=== PATIENT | female | born 1970 | race Caucasian/White ===

== ENCOUNTER → 2019-05-20 13:38 | Outpatient (BNVA) | payer SELFPAY | PROVIDERS: Family Provider Nurse Practitioner; PCP Nurse Practitioner; Visit Provider Orthopaedic Surgery | DX: S82.831A Other fracture of upper and lower end of right fibula, initial encounter for closed fracture (principal); X58.XXXA Exposure to other specified factors, initial encounter | CPT/HCPCS: 73610 ==

== ENCOUNTER → 2019-07-18 09:16 | Outpatient (BNVA) | payer SELFPAY | PROVIDERS: Family Provider Nurse Practitioner; PCP Nurse Practitioner; Visit Provider Nurse Practitioner | DX: M79.7 Fibromyalgia (principal) | CPT/HCPCS: 82607; 84443 ==

== ENCOUNTER → 2019-08-23 12:32 | Outpatient (BNVA) | payer SELFPAY | PROVIDERS: Family Provider Nurse Practitioner; PCP Nurse Practitioner; Visit Provider Nurse Practitioner Family | DX: R39.9 Unspecified symptoms and signs involving the genitourinary system (principal); N30.01 Acute cystitis with hematuria | CPT/HCPCS: 81000 ==

== ENCOUNTER 2019-08-31 18:42 | Emergency (ER) | payer SELFPAY ==
[2019-08-31 19:07] VITALS: BP 126/90; PULSE 78; RESP 18; TEMP 36.7; O2SAT 99; BMI 35.4
[2019-08-31 19:15] VITALS: PULSE 76
--- NOTE | 2019-08-31 19:24 | XRR_ITS ---
PROCEDURE INFORMATION: Exam: XR Right Ankle Exam date and time: 08/31/2019 7:49 PM Age: 49 years old Clinical indication: Injury or trauma; Fall; Initial encounter; Swelling (edema); Ankle; Injury date: 08/31/19; Injury details: Right leg pain, fell off ladder approx. 8 ft. Swollen and tender on lat malleolus; Additional info: Injury, swollen and tender on lat malleolus TECHNIQUE: Imaging protocol: XR Right ankle. Views: Frontal, lateral, and oblique views. COMPARISON: CR XR ankle RT min 3V* [id number] 05/20/2019 1:43 PM FINDINGS: Bones/joints: Nondisplaced likely comminuted fracture of the mid and upper posterior calcaneal body. Moderate tibiotalar joint effusion. Healed distal fibular fracture. Soft tissues: Moderate lateral malleolar soft tissue swelling. XR/XR ankle RT min 3V* [id number] IMPRESSION: 1. Nondisplaced likely comminuted fracture of the mid and upper posterior calcaneal body. Cross-sectional imaging may be helpful. 2. Moderate tibiotalar joint effusion. 3. Healed distal fibular fracture. 4. Moderate lateral malleolar soft tissue swelling.
--- NOTE | 2019-08-31 19:24 | W.ED.EXTPRO ---
HPI - Extremity Problem General: Chief complaint: Extremity Injury, Lower Stated complaint: right leg pain/fell off ladder Time Seen by Provider: 08/31/19 19:11 History of Present Illness: HPI Narrative: Patient is a 49-year-old female who comes to the ED after having a fall and injuring her right ankle. Patient was standing on a ladder around 8 feet in the air and she was climbing down somehow fell and twisted her right ankle and landed down on her right side. Injury occurred just prior to arrival. Right ankle is now swollen and painful to walk on. She has been applying ice and has not had anything for pain. The pain on the right side is just under the armpit on the right lateral rib area. She denies having any pleuritic pain and only has pain on the right side with certain movements. Patient fractured same ankle about a year ago. Denies any head trauma or loss of consciousness. Associated symptoms: Deny chest pain, fever(s) or rash Review of Systems Const: Denies: fever, chills or fatigue Eyes: Denies: change in vision or eye discomfort ENMT: Denies: throat pain, painful swallowing, nasal discharge or nasal congestion Card: Denies: chest pain, palpitations, edema, swelling of feet/ankles, shortness of breath on exertion or shortness of breath when lying down Resp: Denies: shortness of breath, productive cough or non-productive cough GI: Denies: abdominal pain, nausea, vomiting, diarrhea, constipation or blood in stool : Denies: flank pain, painful urination or blood in urine Musc: Reports: back pain (right side pain-Just below armpit), extremity pain (right ankle) and extremity swelling (right ankle); Denies: neck pain Skin/Breast: Denies: rash or new lesion Neuro: Denies: headache, numbness in extremities or weakness in extremities PFS ED PFSH: Medical History Adult hypothyroidism Fibromyalgia History of TIA (transient ischemic attack) SVT (supraventricular tachycardia) Surgical History History of endometrial ablation 2008 History of tubal ligation Family History Mother Hypertension Brother Hypertension Family/Other Stroke Denies family history of Diabetes Cancer Social History Smoking and tobacco status: never smoked Second hand smoke exposure: No Smoking risk assessment/counseling performed?: No Alcohol intake: never Desire information about alcohol rehabilitation?: No Counseling given: No Desire information about substance/drug rehabilitation?: No Counseling given: No Adopted: No Caregiver/support person: No Lives independently: Yes Household members: spouse Housing: House Marital status: Number of children: 4 service: No Current occupational status: unemployed Pets and animals: Yes History of recent travel: No Current gender identity: Female Physical Exam Const: COMMON NORMALS: oriented x3 HENMT: COMMON NORMALS: normocephalic HEAD & SCALP: normocephalic MOUTH: oral and palatal mucosa normal THROAT: posterior oropharynx normal and uvula midline Eye: COMMON NORMALS: PERRL PUPIL: Yes PERRL Neck/C-Spine: COMMON NORMALS: supple GENERAL: Yes normal visual inspection Resp: COMMON NORMALS: normal respiratory effort, no retractions, no use of accessory muscles and clear to auscultation bilaterally AUSCULTATION: clear to auscultation bilaterally Cardio: COMMON NORMALS: regular rate, regular rhythm, S1 normal heart sound, S2 normal heart sound, no gallops, no clicks, no murmurs and peripheral pulses 2+ throughout RATE: regular rate RHYTHM: regular rhythm HEART SOUNDS: S1 normal and S2 normal PERIPHERAL PULSES: pulses 2+ throughout GI: COMMON NORMALS: normal to inspection, nondistended, normoactive bowel sounds, soft to palpation, non-tender and no masses PALPATION: Yes soft : COMMON NORMALS: Yes no CVA tenderness BLADDER/KIDNEY EXAM: Yes no CVA tenderness Back/Pelvis: COMMON NORMALS: no CVA tenderness THORACIC SPINE/UPPER BACK: Yes paraspinal muscle tenderness Thoracic paraspinal muscle tenderness: right (Right lateral side with localized muscle tenderness just below armpit.) Extremity: RIGHT LOWER EXTREMITY: Yes ankle joint Right ankle: Yes inspection (lateral malleolus swelling), Yes palpation (tender on lateral malleolus), Yes ROM (limited due to pain) and Yes neurovascular exam (intact) Neuro: COMMON NORMALS: oriented x3 and moves all extremities Skin: COMMON NORMALS: no rashes or lesions noted GENERAL SKIN EXAM: no rashes or lesions noted and dry skin Course Vital Signs: Vital signs: Vital Signs Temperature 98.1 F 08/31/19 19:07 Pulse Rate 72 08/31/19 21:20 Respiratory Rate 16 08/31/19 21:20 Blood Pressure 154/78 08/31/19 21:20 Pulse Oximetry 98 08/31/19 21:20 MDM - Extremity (Nontraumatic) MDM Narrative: Medical decision making narrative: Patient is a 49-year-old female who comes into the ED with right ankle injury. Right ankle was swollen and tender upon palpation. X-ray of right ankle was performed and showed no acute fractures. Prior old fracture seen and it is healing. Patient was given crutches and put in a short leg posterior splint to help stabilize ankle. I discussed with her to talk with her PCP about how long she should wear splint. She was told to limit weightbearing for the next 2 to 3 days and then to increase activity and weight-bear as tolerated. Patient has a follow-up appointment with PCP on Monday, September 01. She is also told to rest, ice and elevate right ankle. Take [id number] ibuprofen or Aleve for pain and inflammation. Patient understood and agreed with plan. Imaging Data^: Xray Ortho: Attestation: I personally reviewed and interpreted this imaging study as follows: My impression: Right ankle x-ray performed. No acute fracture seen. Prior old fracture seen. Pending final radiology report. Discharge Plan Discharge Patient Disposition: Home, Self-Care Clinical Impression: Ankle sprain and strain Condition: Stable Prescriptions: No Action cyanocobalamin (vitamin B-12) 1,000 mcg/mL solution 1,000 mcg IM ONCE Qty: 1 RF: 0 (DME) BD Luer-Estrellita Syringe 3 mL 25 gauge x 1 syringe See Rx Instructions .ROUTE .MEDSUPPLY Qty: 1 RF: 0 triamcinolone acetonide 0.1 % cream 1 applic TOPICAL BID RF: 0 hydrocodone-acetaminophen [[place]] 5-325 mg tablet 1 tab PO Q6H PRNRF: 0 metoprolol tartrate 25 mg tablet 25 mg PO .COMPLEX Qty: 60 RF: 2 levothyroxine [Synthroid] 75 mcg tablet 75 mcg PO QDAY Qty: 30 RF: 2 duloxetine [Cymbalta] 30 mg capsule,delayed release(DR/EC) 30 mg PO BID Qty: 60 RF: 2 Discharge Orders: Discharge Order (Routine); Ordered 08/31/19 Ordered By: Huang Pyle Referrals: Alexis Beltrán, SENIOR INVESTMENT MANAGER-C [Primary Care Provider] - Discharge Diet: Regular Discharge Activity: Increase activity as tolerated and Limit activity as instructed Patient Instructions: Ankle Sprain (ED) Activity Restrictions/Additional Instructions: Follow-up with your PCP on your schedule appointment for Monday, September 01. Limit weightbearing and use your crutches for the first 2 to 3 days. Then start increasing activity and weightbearing on right foot as tolerated. Talk with your PCP about when to remove splint and follow-up care for ankle sprain. Rest, ice and elevate right ankle. Take [id number] ibuprofen or Aleve to help with pain and inflammation. Discharge Date/Time: 08/31/19 21:22 Coding Level of Care Code ED Photographic Aide for Danilo Fwd Exam Comprehensive
[2019-08-31] MEDS: HYDROcodone-acetaminophen 7.5-325 mg Tablet 1 TAB PO (19:29)
[2019-08-31 19:30] VITALS: BP 137/105; PULSE 75; RESP 18; O2SAT 100
[2019-08-31 21:20] VITALS: BP 154/78; PULSE 72; RESP 16; O2SAT 98
== END 2019-08-31 21:22 | disposition home or self-care (01) ==
PROVIDERS: Emergency Provider Physician Assistant; Family Provider Nurse Practitioner; PCP Nurse Practitioner
DX: S93.401A Sprain of unspecified ligament of right ankle, initial encounter (principal); W11.XXXA Fall on and from ladder, initial encounter; E03.9 Hypothyroidism, unspecified; M79.7 Fibromyalgia; Z86.73 Personal history of transient ischemic attack (TIA), and cerebral infarction without residual deficits; Z82.49 Family history of ischemic heart disease and other diseases of the circulatory system
CPT/HCPCS: 12345; 73610; 99281

== ENCOUNTER → 2019-09-02 09:03 | Outpatient (BNVA) | payer SELFPAY | PROVIDERS: Family Provider Nurse Practitioner; PCP Nurse Practitioner; Visit Provider Nurse Practitioner | DX: N30.01 Acute cystitis with hematuria (principal) | CPT/HCPCS: 81000 ==

== ENCOUNTER → 2019-09-05 10:48 | Outpatient (BNVA) | payer SELFPAY | PROVIDERS: Family Provider Nurse Practitioner; PCP Nurse Practitioner; Visit Provider Podiatrist Foot & Ankle Surgery | DX: S92.001A Unspecified fracture of right calcaneus, initial encounter for closed fracture (principal); S92.002A Unspecified fracture of left calcaneus, initial encounter for closed fracture | CPT/HCPCS: 73650 ==

== ENCOUNTER → 2019-09-19 11:56 | Outpatient (BNVA) | payer SELFPAY | PROVIDERS: Family Provider Nurse Practitioner; PCP Nurse Practitioner; Visit Provider Podiatrist Foot & Ankle Surgery | DX: S92.011A Displaced fracture of body of right calcaneus, initial encounter for closed fracture (principal); X58.XXXA Exposure to other specified factors, initial encounter | CPT/HCPCS: 73650 ==

== ENCOUNTER → 2019-10-09 15:09 | Outpatient (BNVA) | payer SELFPAY | PROVIDERS: Family Provider Nurse Practitioner; PCP Nurse Practitioner; Visit Provider Podiatrist Foot & Ankle Surgery | DX: S92.001A Unspecified fracture of right calcaneus, initial encounter for closed fracture (principal); X58.XXXA Exposure to other specified factors, initial encounter | CPT/HCPCS: 73650 ==

== ENCOUNTER → 2019-11-06 10:07 | Outpatient (BNVA) | payer SELFPAY | PROVIDERS: Family Provider Nurse Practitioner; PCP Nurse Practitioner; Visit Provider Podiatrist Foot & Ankle Surgery | DX: S92.001A Unspecified fracture of right calcaneus, initial encounter for closed fracture (principal); X58.XXXA Exposure to other specified factors, initial encounter | CPT/HCPCS: 73650 ==

== ENCOUNTER → 2019-11-07 09:17 | Outpatient (BNVA) | payer SELFPAY | PROVIDERS: Family Provider Nurse Practitioner; PCP Nurse Practitioner; Visit Provider Nurse Practitioner | DX: E03.9 Hypothyroidism, unspecified (principal); M79.7 Fibromyalgia | CPT/HCPCS: 80053; 84443 ==

== ENCOUNTER → 2020-01-09 14:43 | Outpatient (BNVA) | payer SELFPAY | PROVIDERS: Family Provider Nurse Practitioner; PCP Nurse Practitioner; Visit Provider Nurse Practitioner | DX: R42 Dizziness and giddiness (principal); Z11.59 Encounter for screening for other viral diseases | CPT/HCPCS: 36416; 82962; 87635 ==

== ENCOUNTER → 2020-05-20 11:00 | Outpatient (BNVA) | payer SELFPAY | PROVIDERS: Family Provider Nurse Practitioner; PCP Nurse Practitioner; Visit Provider Nurse Practitioner Family | DX: R30.0 Dysuria (principal); R32 Unspecified urinary incontinence | CPT/HCPCS: 81000 ==

== ENCOUNTER 2020-06-02 10:09 | Outpatient (CLI) | payer SELFPAY ==
--- NOTE | 2020-06-02 10:15 | US_ITS ---
WS: [id number] RENAL ULTRASOUND HISTORY: R32 - Unspecified urinary incontinence COMPARISON: None available. TECHNIQUE: 2-D and color Doppler imaging of the kidney submitted. Right kidney: 10.7 cm x 5.0 cm x 4.5 cm. Normal echogenicity with no hydronephrosis or mass. Left kidney: 11.1 cm x 5.3 cm x 5.5 cm. Normal echogenicity with no hydronephrosis or mass. Aorta: Normal. Urinary Bladder: Normal distention. US/US renal BI* [id number] IMPRESSION: Normal renal ultrasound.
--- NOTE | 2020-06-02 11:00 | US_ITS ---
WS: [id number] TRANSABDOMINAL PELVIC AND TRANSVAGINAL PELVIC ULTRASOUND HISTORY: R32 - Unspecified urinary incontinence COMPARISON: 07/16/2009 Uterus: 5.7 cm x 3.8 cm x 1.9 cm. Normal size anteverted uterus. No fibroid or mass identified. Endometrium: 0.3 cm. Poorly visualized with the cardia but no abnormality identified. Right ovary: 1.9 cm x 1.0 cm x 2.0 cm. Atrophic. No solid mass. Normal vascularity. Left ovary: 1.5 cm x 0.8 cm x 1.7 cm. Atrophic. No solid mass. Normal vascularity. No free fluid. US/US pelvic with transvaginal IMPRESSION: Negative pelvic ultrasound. No mass or abnormality identified.
== END 2020-06-02 10:10 | disposition home or self-care (01) ==
LOC: RAD 10:13
PROVIDERS: PCP Nurse Practitioner; Visit Provider Nurse Practitioner Family
DX: R32 Unspecified urinary incontinence (principal)
CPT/HCPCS: 76770; 76830; 76856

== ENCOUNTER → 2020-12-07 08:46 | Outpatient (BNVA) | payer SELFPAY | PROVIDERS: PCP Nurse Practitioner; Visit Provider Nurse Practitioner | DX: E03.9 Hypothyroidism, unspecified (principal) | CPT/HCPCS: 80053; 84443 ==

== ENCOUNTER → 2021-05-21 09:36 | Outpatient (BNVA) | payer SELFPAY | PROVIDERS: PCP Nurse Practitioner; Visit Provider Nurse Practitioner Family | DX: R17 Unspecified jaundice (principal); R74.8 Abnormal levels of other serum enzymes | CPT/HCPCS: 80053; 85025; 86705; 86706; 86709; 86803; 87340 ==

== ENCOUNTER → 2021-07-27 08:48 | Outpatient (BNVA) | payer SELFPAY | PROVIDERS: PCP Nurse Practitioner; Visit Provider Dermatology | DX: Z01.89 Encounter for other specified special examinations (principal) ==

== ENCOUNTER → 2022-01-04 11:13 | Outpatient (BNVA) | payer MEDICAID, SELFPAY | PROVIDERS: PCP Nurse Practitioner; Visit Provider Nurse Practitioner | DX: E03.9 Hypothyroidism, unspecified (principal); E55.9 Vitamin D deficiency, unspecified; M79.7 Fibromyalgia; L30.8 Other specified dermatitis | CPT/HCPCS: 80053; 82306; 82607; 84439; 84443; 84481; 85025; 85651 ==

== ENCOUNTER → 2022-02-25 13:05 | Outpatient (BNVA) | payer MEDICAID, SELFPAY | PROVIDERS: PCP Nurse Practitioner; Visit Provider Nurse Practitioner Family | DX: M79.10 Myalgia, unspecified site (principal); M25.50 Pain in unspecified joint; R79.89 Other specified abnormal findings of blood chemistry; L30.8 Other specified dermatitis | CPT/HCPCS: 84550; 85651; 86038; 86140; 86200; 86431 ==

== ENCOUNTER 2022-03-30 16:00 | Outpatient (CLI) | payer MEDICAID, SELFPAY ==
[2022-03-30 17:21] LABS: Hepatitis A Antibody IgM Non-Reactive (Nonreactive); Hepatitis B Core AB, Total Non-Reactive (Nonreactive); Hepatitis B Surface AB 3.5 (11.5-1000); Hepatitis B Surface Antigen Non-Reactive (Nonreactive); Hepatitis C Virus Antibody Non-Reactive (Nonreactive)
[2022-03-30 19:24] LABS: HIV 1 & 2 Antibody Non-Reactive (Non-Reactiv); HIV 1 & 2 Antigen Non-Reactive (Non-Reactiv)
[2022-03-31 09:37] LABS: CENTROMERE B ANTIBODY <1.0 NEG AI (<1.0 NEG); JO-1 ANTIBODY <1.0 NEG AI (<1.0 NEG); RNP ANTIBODY <1.0 NEG AI (<1.0 NEG); SCL-70 ANTIBODY <1.0 NEG AI (<1.0 NEG); SJOGREN'S ANTIBODY (SS-A) <1.0 NEG AI (<1.0 NEG); SM ANTIBODY <1.0 NEG AI (<1.0 NEG); SS-B <1.0 NEG AI (<1.0 NEG)
[2022-03-31 13:08] LABS: COMPLEMENT COMPONENT C3C 165 mg/dL (83-193); COMPLEMENT COMPONENT C4C 26 mg/dL (15-57)
[2022-03-31 13:23] LABS: THYROID PEROXIDASE ANTIBODIES 381 IU/mL (<9)
[2022-04-01 14:24] LABS: Quantiferon Mitogen >10.00 IU/mL; Quantiferon Nil 0.02 IU/mL; Quantiferon Plus TB2 <0.00 IU/mL; Quantiferon TB Gold NEGATIVE (NEGATIVE)
[2022-04-01 15:58] LABS: COMPLEMENT, TOTAL (CH50) >60 U/mL (31-60)
[2022-04-02 15:48] LABS: DNA AB (DS) CRITHIDIA,IFA NEGATIVE (NEGATIVE)
[2022-04-04 11:07] LABS: ANA SCREEN, IFA POSITIVE (NEGATIVE)
== END 2022-03-30 16:01 | disposition home or self-care (01) ==
LOC: LAB 16:03
PROVIDERS: PCP Nurse Practitioner; Visit Provider Dermatology
DX: L40.9 Psoriasis, unspecified (principal); R76.8 Other specified abnormal immunological findings in serum; Z79.899 Other long term (current) drug therapy
CPT/HCPCS: 36415; 86160; 86162; 86235; 86255; 86376; 86480; 86705; 86706; 86709; 86803; 87340; 87806

== ENCOUNTER → 2022-05-04 14:01 | Outpatient (BNVA) | payer MEDICAID, SELFPAY | PROVIDERS: PCP Nurse Practitioner; Visit Provider Nurse Practitioner | DX: E03.9 Hypothyroidism, unspecified (principal); E66.9 Obesity, unspecified; I47.1 Supraventricular tachycardia | CPT/HCPCS: 80053; 81000; 84443; 85025 ==

== ENCOUNTER 2022-05-10 08:55 | Outpatient (CLI) | payer MEDICAID, SELFPAY ==
--- NOTE | 2022-05-10 09:30 | US_ITS ---
WS: [id number] ULTRASOUND ABDOMEN LIMITED CLINICAL INFORMATION: elevated liver enzymes FINDINGS: Liver Size: Mild hepatomegaly Craniocaudal length: 16.4 cm. Echogenicity: Increased echogenicity Surface nodularity: None. Mass (size and location): None. Bile ducts Intrahepatic ducts: Normal. Common bile duct diameter: 0.4 cm. Gallbladder Normal. Gallstones: None. Gallbladder sludge: None. Gallbladder wall thickening: None. Pericholecystic fluid: None. Sonographic Walter sign: Absent. Pancreas Normal as visualized. Right kidney: Normal. Hydronephrosis: None. Size: 10.3 cm x 5.7 cm x 4.3 cm. Abdominal aorta and IVC Visualized portions are normal. Ascites: None. US/US liver [id number] IMPRESSION: 1. Mild hepatomegaly with diffuse fatty infiltration. 2. Normal gallbladder. No cholelithiasis. 3. Normal common bile duct. 4. No hydronephrosis in RIGHT kidney.
== END 2022-05-10 08:56 | disposition home or self-care (01) ==
PROVIDERS: PCP Nurse Practitioner; Visit Provider Nurse Practitioner Family
DX: R74.8 Abnormal levels of other serum enzymes (principal); K76.0 Fatty (change of) liver, not elsewhere classified; R16.0 Hepatomegaly, not elsewhere classified
CPT/HCPCS: 76705

== ENCOUNTER → 2022-05-24 11:02 | Outpatient (BNVA) | payer MEDICAID, SELFPAY | PROVIDERS: PCP Nurse Practitioner; Referring Provider Nurse Practitioner Family; Visit Provider Internal Medicine Rheumatology | DX: Z79.899 Other long term (current) drug therapy (principal); M19.90 Unspecified osteoarthritis, unspecified site; Z11.59 Encounter for screening for other viral diseases; M45.6 Ankylosing spondylitis lumbar region | CPT/HCPCS: 36415; 73130; 73562; 73630; 82306; 86480; 86704; 86803; 86812; 87340 ==

== ENCOUNTER → 2022-08-23 11:38 | Outpatient (BNVA) | payer MEDICAID, SELFPAY | PROVIDERS: PCP Nurse Practitioner; Visit Provider Internal Medicine Rheumatology | DX: L40.50 Arthropathic psoriasis, unspecified (principal); Z79.899 Other long term (current) drug therapy | CPT/HCPCS: 36415; 80076; 82565; 85025; 86140 ==

== ENCOUNTER → 2022-11-22 09:58 | Outpatient (BNVA) | payer MEDICAID, SELFPAY | PROVIDERS: PCP Nurse Practitioner; Visit Provider Internal Medicine Rheumatology | DX: Z79.899 Other long term (current) drug therapy (principal); L40.50 Arthropathic psoriasis, unspecified | CPT/HCPCS: 36415; 80076; 82565; 85025; 86140 ==

== ENCOUNTER → 2022-12-19 13:28 | Outpatient (BNVA) | payer MEDICAID, SELFPAY | PROVIDERS: PCP Nurse Practitioner; Visit Provider Nurse Practitioner | DX: E03.9 Hypothyroidism, unspecified (principal) | CPT/HCPCS: 80048; 84443 ==

== ENCOUNTER 2023-01-19 06:49 | Outpatient (CLI) | payer MEDICAID, SELFPAY ==
--- NOTE | 2023-01-19 07:45 | US_ITS ---
WS: [id number] RIGHT UPPER QUADRANT ULTRASOUND HISTORY: epigastric pain COMPARISON: 05/10/2022 Liver: 16.9 cm in length. Liver remains top normal size. Very mild coarse echotexture throughout prob ably related to hepatocellular disease or hepatic steatosis. Surface of the liver is normal. No mass or bile duct dilatation. Portal Vein: Normal hepatopetal flow with monophasic waveform. Gallbladder: Normally distended gallbladder with no stones or wall thickening. CBD: 0.3 cm Pancreas: Normal size and echogenicity. Right kidney: 9.9 cm in length. Normal size and echogenicity. No hydronephrosis or mass. Aorta and IVC: Unremarkable abdominal aorta and IVC. No ascites. IMPRESSION: 1. Liver remains top normal size with mild coarse echotexture from hepatocellular disease. May be rel ated hepatic steatosis. 2. Normal gallbladder.
== END 2023-01-19 06:50 | disposition home or self-care (01) ==
LOC: RAD 06:50
PROVIDERS: PCP Nurse Practitioner; Visit Provider Surgery
DX: R10.13 Epigastric pain (principal); K76.9 Liver disease, unspecified
CPT/HCPCS: 76705

== ENCOUNTER 2023-02-22 07:59 | Day surgery (SDC) | payer MEDICAID, SELFPAY ==
[2023-02-22 08:10] VITALS: BP 125/83; PULSE 60; RESP 18; TEMP 36.4; O2SAT 100
[2023-02-22] MEDS: sodium chloride 0.9% 1,000 ML 30 ML IV (08:36)
--- NOTE | 2023-02-22 08:45 | ANES.PREANE2 ---
Pre-Anesthetic Assessment Height/Weight: Height 1.57 m Weight 83.007 kg Temp Pulse Resp BP Pulse Ox O2 Del Method 97.5 F L 60 18 125/83 100 Room Air 02/22/23 08:10 02/22/23 08:10 02/22/23 08:10 02/22/23 08:10 02/22/23 08:10 02/22/23 08:10 Preop Diagnosis: Abdominal Bloating, GERD, Screening Operation Date: 02/22/23 09:15 Proposed Procedures p 53290 egd 14020 colon R14.0,Z12.11,K21.9,R10.13(Not Applicable) - DO mango Thomas Colonoscopy(Not Applicable) - Ronnell Myers DO Familial anesthetic complications: none Last intake: Intake Last Liquid Date 02/21/23 Last Liquid Time 22:00 Last Solid Date 02/20/23 Last Solid Time 20:00 Social No alcohol and No tobacco Exam alert, oriented x 3, clear to auscultation bilaterally and regular rate & rhythm Airway Submandibular: within normal limits Cervical ROM: within normal limits Mallampati: Class II Dentition: false (upper plate) Pulmonary None reported CV/HEM Arrythmia (SVT- history) None reported Hepatic Non-alcoholic fatty liver disease, elevated enzymes. GI Gastroesophageal Reflux Disease abominal pain, bloating Metabolic Thyroid Disease [facility] Rheumatoid Arthritis Neuropsych Anxiety, Depression and Transient Ischemic Attack (x3 2005 stress induced per patient) Anesthetic Plan ASA status: 3 Anesthesia: MAC Medications/Allergies Home Medications Medication Instructions Recorded Confirmed Last Taken Type pen needle, diabetic 33 gauge x #100 ea 03/19/22 02/22/23 Unknown Rx calcipotriene 0.005 % topical cream 1 applic topical DAILY L40.0 #60 08/23/22 02/22/23 3 Weeks Ago Rx grams ~02/01/23 clobetasol 0.05 % scalp solution 1 applic topical DAILY #50 mL 08/23/22 02/22/23 3 Weeks Ago Rx ~02/01/23 clobetasol 0.05 % topical ointment 1 applic topical BID 2 weeks #45 08/23/22 02/22/23 02/20/23 Rx grams fluocinolone 0.01 % scalp oil and 1 ea topical .2-3 times weekly. 08/23/22 02/22/23 3 Weeks Ago Rx shower cap ([place]-Smoothe/FS Scalp #118.28 mL ~02/01/23 Oil) hydrocortisone 2.5 % topical 1 applic topical BID L40.0 2 weeks 08/23/22 02/22/23 3 Weeks Ago Rx ointment #28.35 grams ~02/01/23 ketoconazole 2 % shampoo 1 applic topical ONCE #120 mL 08/23/22 02/22/23 3 Weeks Ago Rx ~02/01/23 triamcinolone acetonide 0.1 % 1 applic topical BID #80 grams 08/23/22 02/22/23 3 Weeks Ago Rx topical ointment ~02/01/23 metoprolol tartrate 25 mg tablet 25 mg PO Q12H #60 tabs 12/19/22 02/22/23 02/22/23 06:30 Rx levothyroxine 75 mcg tablet 75 mcg PO QDAY #30 tabs 01/25/23 02/22/23 02/22/23 06:30 Rx (Synthroid) citalopram 20 mg tablet (Celexa) 20 mg PO DAILY #30 tabs 02/20/23 02/22/23 3 Weeks Ago Rx ~02/01/23 pantoprazole 40 mg tablet,delayed 40 mg PO DAILY 02/22/23 02/22/23 02/21/23 History release prednisone 10 mg tablets in a dose 10 mg PO PER PKG DIR 02/22/23 02/22/23 3 Weeks Ago History pack ~02/01/23 Allergies Allergy/AdvReac Type Severity Reaction Status Date / Time No Known Allergies Allergy Verified 02/22/23 08:09 Current Medications Generic Name Dose Route Start Last Admin Trade Name Freq PRN Reason Stop Dose Admin Sodium Chloride 1,000 mls @ 30 mls/hr 02/22/23 08:15 02/22/23 08:36 Sodium Chloride 0.9% IV 02/23/23 08:14 30 mls/hr .Q24H SABAS Administration PFSH Anesthesia Medical History Adult hypothyroidism Fibromyalgia High risk medication use History of TIA (transient ischemic attack) Immunization counseling Obesity (BMI 30-39.9) Plaque psoriasis Positive TAMELA (antinuclear antibody) Psoriasiform dermatitis Psoriasis Psoriatic arthritis SVT (supraventricular tachycardia) Vitamin D insufficiency Surgical History History of cataract surgery Right 2019 History of endometrial ablation 2008 History of tubal ligation Family History Mother Hypertension Brother Hypertension Family/Other Stroke Other Lung disease Denies family history of Diabetes Chronic kidney disease (CKD) Cancer Social History Smoking and tobacco status: never smoked Second hand smoke exposure: No Smoking risk assessment/counseling performed?: No Alcohol intake: never Desire information about alcohol rehabilitation?: No Counseling given: No Substance/Drug Use: unknown Desire information about substance/drug rehabilitation?: No Counseling given: No Adopted: No Caregiver/support person: No Lives independently: Yes Household members: spouse Housing: House Marital status: Number of children: 4 service: No Current occupational status: unemployed Pets and animals: Yes Do you think of yourself as: Straight/Heterosexual Current gender identity: Female Data Anesthesia Cardiac Studies: No Data to Display
--- NOTE | 2023-02-22 09:10 | PM.HP ---
Providers/Chief Complaint Primary Care Provider: BALTAZAR Ortez Chief Complaint: R14.0, Z12.11, K21.9, R10.13 History of Present Illness Jazmine Gaspar is a 52 year old female Review of Systems General: Reports: 10 or more systems reviewed and unremarkable except in HPI and below Medications/Allergies Home Medications Medication Instructions Recorded Confirmed Last Taken Type pen needle, diabetic 33 gauge x #100 ea 03/19/22 02/22/23 Unknown Rx calcipotriene 0.005 % topical cream 1 applic topical DAILY L40.0 #60 08/23/22 02/22/23 3 Weeks Ago Rx grams ~02/01/23 clobetasol 0.05 % scalp solution 1 applic topical DAILY #50 mL 08/23/22 02/22/23 3 Weeks Ago Rx ~02/01/23 clobetasol 0.05 % topical ointment 1 applic topical BID 2 weeks #45 08/23/22 02/22/23 02/20/23 Rx grams fluocinolone 0.01 % scalp oil and 1 ea topical .2-3 times weekly. 08/23/22 02/22/23 3 Weeks Ago Rx shower cap ([place]-Smoothe/FS Scalp #118.28 mL ~02/01/23 Oil) hydrocortisone 2.5 % topical 1 applic topical BID L40.0 2 weeks 08/23/22 02/22/23 3 Weeks Ago Rx ointment #28.35 grams ~02/01/23 ketoconazole 2 % shampoo 1 applic topical ONCE #120 mL 08/23/22 02/22/23 3 Weeks Ago Rx ~02/01/23 triamcinolone acetonide 0.1 % 1 applic topical BID #80 grams 08/23/22 02/22/23 3 Weeks Ago Rx topical ointment ~02/01/23 metoprolol tartrate 25 mg tablet 25 mg PO Q12H #60 tabs 12/19/22 02/22/23 02/22/23 06:30 Rx levothyroxine 75 mcg tablet 75 mcg PO QDAY #30 tabs 01/25/23 02/22/23 02/22/23 06:30 Rx (Synthroid) citalopram 20 mg tablet (Celexa) 20 mg PO DAILY #30 tabs 02/20/23 02/22/23 3 Weeks Ago Rx ~02/01/23 pantoprazole 40 mg tablet,delayed 40 mg PO DAILY 02/22/23 02/22/23 02/21/23 History release prednisone 10 mg tablets in a dose 10 mg PO PER PKG DIR 02/22/23 02/22/23 3 Weeks Ago History pack ~02/01/23 Allergies Allergy/AdvReac Type Severity Reaction Status Date / Time No Known Allergies Allergy Verified 02/22/23 08:09 PFSH Acute PFSH: Medical History Adult hypothyroidism Fibromyalgia High risk medication use History of TIA (transient ischemic attack) Immunization counseling Obesity (BMI 30-39.9) Plaque psoriasis Positive TAMELA (antinuclear antibody) Psoriasiform dermatitis Psoriasis Psoriatic arthritis SVT (supraventricular tachycardia) Vitamin D insufficiency Surgical History History of cataract surgery Right 2019 History of endometrial ablation 2008 History of tubal ligation Family History Mother Hypertension Brother Hypertension Family/Other Stroke Other Lung disease Denies family history of Diabetes Chronic kidney disease (CKD) Cancer Social History Smoking and tobacco status: never smoked Second hand smoke exposure: No Smoking risk assessment/counseling performed?: No Alcohol intake: never Desire information about alcohol rehabilitation?: No Counseling given: No Substance/Drug Use: unknown Desire information about substance/drug rehabilitation?: No Counseling given: No Adopted: No Caregiver/support person: No Lives independently: Yes Household members: spouse Housing: House Marital status: Number of children: 4 service: No Current occupational status: unemployed Pets and animals: Yes Do you think of yourself as: Straight/Heterosexual Current gender identity: Female Vitals/I&O/Wt Last Vital Signs Temp 97.5 F L 02/22/23 08:10 Pulse 60 02/22/23 08:10 Resp 18 02/22/23 08:10 BP 125/83 02/22/23 08:10 Pulse Ox 100 02/22/23 08:10 O2 Del Method Room Air 02/22/23 08:10 Weight last 48 hrs Weight 183 lb A&P Assessment and plan (1) Bloating: (2) Colon cancer screening: (3) Gastroesophageal reflux disease: (4) Epigastric pain: Plan EGD and colonoscopy Attestations Medical Necessity Statement*: Home Coding Level of Care Code Acute Code for Chg Fwd Diagnoses Bloating R14.0 Colon cancer screening Z12.11 Gastroesophageal reflux disease K21.9 Epigastric pain R10.13
[2023-02-22 09:40] VITALS: BP 80/64; PULSE 70; RESP 14; TEMP 36.3; O2SAT 94
[2023-02-22 09:54] VITALS: BP 103/72; PULSE 77; RESP 16; O2SAT 100
--- NOTE | 2023-02-22 16:14 | ANE.PACU2 ---
Inpatient post-anesthesia follow up: Airway intact: Yes Vital signs: Temperature 97.4 F Pulse Rate 77 Respiratory Rate 16 Blood Pressure 103/72 Pulse Oximetry 100 Oxygen Delivery Me thod Room Air Oxygen Flow Rate 6 Fraction of Inspir ed Oxygen Hydration adequate: Yes Nausea and vomiting: No Pain level: 2 Mental status: Baseline
== END 2023-02-22 10:20 | disposition home or self-care (01) ==
PROVIDERS: PCP Nurse Practitioner; Visit Provider Surgery
PROC: 0DJ08ZZ Inspection of Upper Intestinal Tract, Via Natural or Artificial Opening Endoscopic (ICD-10-PCS; CPT 43235; principal; 2023-02-22 09:15)
PROC: 0DJD8ZZ Inspection of Lower Intestinal Tract, Via Natural or Artificial Opening Endoscopic (ICD-10-PCS; CPT 45378; 2023-02-22 09:15)
DX: Z12.11 Encounter for screening for malignant neoplasm of colon (principal); K29.50 Unspecified chronic gastritis without bleeding; D12.5 Benign neoplasm of sigmoid colon; K21.9 Gastro-esophageal reflux disease without esophagitis; R14.0 Abdominal distension (gaseous); R10.13 Epigastric pain; E03.9 Hypothyroidism, unspecified; M79.7 Fibromyalgia; E66.9 Obesity, unspecified; Z68.33 Body mass index [BMI] 33.0-33.9, adult; K76.0 Fatty (change of) liver, not elsewhere classified; M06.9 Rheumatoid arthritis, unspecified
CPT/HCPCS: 43239; 45385; 88305; 88342; J2704; J3490; J7030

== ENCOUNTER 2023-03-07 07:41 | Outpatient (CLI) | payer MEDICAID, SELFPAY ==
--- NOTE | 2023-03-07 08:00 | NM_ITS ---
WS: [id number] NUCLEAR MEDICINE HIDA SCAN WITH GALLBLADDER EJECTION FRACTION HISTORY: epigastric pain COMPARISON: Gallbladder ultrasound 01/19/2023 TECHNIQUE: The patient was intravenously injected with 7.6 mCi of TC99m Mebrofenin. Immediate imaging over the right upper quadrant was followed by 5 minute image and additional images for a total of 60 minutes. Normal uptake of radiotracer throughout the liver. Activity identified in the gallbladder at 15 minutes and well distended by 60 minutes. Activity in the proximal small bowel was seen by 40 minutes. Good washout of the radiotracer from the liver by 60 minutes. The patient then drank 8 ounces of Ensure Plus. Ejection fraction at 60 minutes was 85%. Normal GB ej ection fraction is 35-75%. Post fatty meal symptoms: None. IMPRESSION: 1. Normal HIDA scan. 2. Normal gallbladder ejection fraction.
== END 2023-03-07 07:42 | disposition home or self-care (01) ==
LOC: RAD 07:41
PROVIDERS: PCP Nurse Practitioner; Visit Provider Surgery
DX: R10.13 Epigastric pain (principal)
CPT/HCPCS: 78227; A9537

== ENCOUNTER → 2023-03-27 11:47 | Outpatient (BNVA) | payer MEDICAID, SELFPAY | PROVIDERS: PCP Nurse Practitioner; Visit Provider Nurse Practitioner | DX: E03.9 Hypothyroidism, unspecified (principal); E55.9 Vitamin D deficiency, unspecified; Z13.6 Encounter for screening for cardiovascular disorders; F41.1 Generalized anxiety disorder; E66.9 Obesity, unspecified | CPT/HCPCS: 80053; 80061; 82306; 84439; 84443; 84481; 85025 ==

== ENCOUNTER → 2023-05-31 09:17 | Outpatient (BNVA) | payer MEDICAID, SELFPAY | PROVIDERS: PCP Nurse Practitioner; Visit Provider Nurse Practitioner | DX: E55.9 Vitamin D deficiency, unspecified (principal); E03.9 Hypothyroidism, unspecified | CPT/HCPCS: 80053; 82306; 84439; 84443; 84481 ==

== ENCOUNTER → 2023-06-22 10:59 | Outpatient (BNVA) | payer MEDICAID, SELFPAY | PROVIDERS: PCP Nurse Practitioner; Visit Provider Nurse Practitioner | DX: M19.042 Primary osteoarthritis, left hand (principal); M25.542 Pain in joints of left hand | CPT/HCPCS: 73130 ==

== ENCOUNTER → 2023-07-21 08:30 | Outpatient (BNVA) | payer MEDICAID, SELFPAY | PROVIDERS: PCP Nurse Practitioner; Visit Provider Internal Medicine Rheumatology | DX: L40.50 Arthropathic psoriasis, unspecified (principal); Z79.899 Other long term (current) drug therapy | CPT/HCPCS: 80076; 82565; 85025; 86140 ==

== ENCOUNTER 2023-09-21 14:20 | Outpatient (CLI) | payer MEDICAID, SELFPAY ==
[2023-09-26 12:20] LABS: Quantiferon Mitogen 8.05 IU/mL; Quantiferon Nil 0.03 IU/mL; Quantiferon TB Gold NEGATIVE (NEGATIVE)
== END 2023-09-21 14:21 | disposition home or self-care (01) ==
LOC: LAB 14:23
PROVIDERS: PCP Nurse Practitioner; Visit Provider Nurse Practitioner Family
DX: L40.0 Psoriasis vulgaris (principal); L40.59 Other psoriatic arthropathy; L57.9 Skin changes due to chronic exposure to nonionizing radiation, unspecified; D22.4 Melanocytic nevi of scalp and neck; L81.4 Other melanin hyperpigmentation; L70.5 Acne excoriee; Z79.899 Other long term (current) drug therapy
CPT/HCPCS: 36415; 86480

== ENCOUNTER → 2023-10-11 10:46 | Outpatient (BNVA) | payer MEDICARE, MEDICAID, SELFPAY | PROVIDERS: PCP Nurse Practitioner; Visit Provider Internal Medicine Rheumatology | DX: L40.50 Arthropathic psoriasis, unspecified (principal); Z79.899 Other long term (current) drug therapy; L40.0 Psoriasis vulgaris; Z71.85 Encounter for immunization safety counseling | CPT/HCPCS: 99214 ==

== ENCOUNTER 2023-11-08 10:31 | Outpatient (CLI) | payer MEDICARE, MEDICAID, SELFPAY ==
[2023-11-08 11:07] LABS: Basophils # 0.1 10^3/uL (0.0-0.1); Basophils % 0.9 %; Eosinophils # 0.1 10^3/uL (0.0-0.8); Eosinophils % 1.5 %; Hematocrit 43.4 % (36-47); Lymphocytes # 1.5 10^3/uL (0.8-4.8); Lymphocytes % 21.5 %; Mean Corpuscular HGB Conc 32.9 g/dL (30-55); Mean Corpuscular Hemoglobin 29.7 pg (27-33); Mean Corpuscular Volume 90.2 fl (85-98); Mean Platelet Volume 10.8 fL (7.4-10.4); Monocytes # 0.6 10^3/uL (0.2-0.9); Monocytes % 8.3 %; Neutrophils # 4.66 10^3/uL (1.8-7.7); Neutrophils % 67.5 %; Nucleated Red Blood Cells % 0 %; Platelet Count 180 10^3/cmm (157-399); Red Blood Count 4.81 10^6/uL (3.85-5.65); Red Cell Distribution Width 12.3 % (12.1-15.1); White Blood Count 6.89 10^3/uL (3.29-11.43)
[2023-11-08 11:33] LABS: Alanine Aminotransferase 65 U/L (0-33); Albumin Level 4.2 g/dL (3.5-5.2); Alkaline Phosphatase 125 U/L (35-105); Anion Gap 12.1 (5-19); Aspartate Amino Transferase 47 U/L (0-32); Blood Urea Nitrogen 9 mg/dL (6-20); C Reactive Protein 5.6 mg/L (0.0-4.9); Calcium 9.2 mg/dL (8.5-10.5); Carbon Dioxide 29 mmol/L (22-29); Chloride 102 mmol/L (98-107); Globulin 3.4 g/dL (1.3-4.6); Glucose 91 mg/dL (65-115); Osmolality Calculated 286 mOsm/kg (285-295); Potassium 4.1 mmol/L (3.5-5.1); Sodium 139 mmol/L (136-145); Thyroid Stimulating Hormone 2.43 uIU/mL (0.27-4.20); Total Bilirubin 0.6 mg/dL (0.15-1.2); Total Protein 7.6 g/dL (6.6-8.7)
== END 2023-11-08 10:32 | disposition home or self-care (01) ==
LOC: LAB 10:33
PROVIDERS: PCP Nurse Practitioner; Visit Provider Internal Medicine Rheumatology
DX: E03.9 Hypothyroidism, unspecified (principal); L40.50 Arthropathic psoriasis, unspecified; Z79.899 Other long term (current) drug therapy; I47.10 Supraventricular tachycardia, unspecified
CPT/HCPCS: 36415; 80053; 84443; 85025; 86140

== ENCOUNTER 2024-02-11 13:41 | Emergency (ER) | payer MEDICARE, MEDICAID, SELFPAY ==
--- NOTE | 2024-02-11 13:46 | ECG_ITS ---
[facility] Test Date: 2024-02-11 Pat Name: Jazmine Gaspar Department: Room: Gender: Female Threat Monitoring Analyst: : 1970 Requested By: Pa Jarquin Order Number: [id number] Jamel MD: Sung Ware M.D. Measurements Intervals [place] Rate: 50 P: 71 AR: 144 QRS: 64 QRSD: 83 T: 59 QT: 443 QTc: 406 Interpretive Statements SINUS BRADYCARDIA LOW QRS VOLTAGE IN PRECORDIAL LEADS [QRS DEFLECTION < 1.0 mV IN CHEST LEADS] SEPTAL MYOCARDIAL INFARCTION , PROBABLY OLD [40+ ms Q WAVE IN V1/V2] Compared to ECG 04/19/2019 12:55:03 Low QRS voltage now present Myocardial infarct finding now present Sinus rhythm no longer present Electronically Signed On 02-12-2024 18:47:11 CDT by Sung Ware M.D. [id number]
--- NOTE | 2024-02-11 13:48 | XRR_ITS ---
PROCEDURE INFORMATION: Exam: XR Chest Exam date and time: 02/11/2024 3:45 PM Age: 53 years old Clinical indication: Chest pressure; Patient HX: Chest pain TECHNIQUE: Imaging protocol: Radiologic exam of the chest. Views: 1 view. COMPARISON: CR XR chest 1V [id number] 04/19/2019 12:59 PM FINDINGS: Airway: Airways are patent. Lungs: Calcified granulomas throughout the lungs are benign. No consolidations. Pleural spaces: No pleural effusions or pneumothorax. Heart/Mediastinum: Cardiomediastinal silhouette is magnified due to technique. Bones/joints: No acute skeletal abnormality. Soft tissues: No acute soft tissue findings. XR/XR chest 1V portable [id number] IMPRESSION: No acute thoracic pathology.
[2024-02-11 13:53] VITALS: BP 127/84; PULSE 50; RESP 17; TEMP 36.4; O2SAT 98; BMI 40.2
[2024-02-11 14:18] LABS: Basophils # 0.1 10^3/uL (0.0-0.1); Eosinophils # 0.1 10^3/uL (0.0-0.8); Eosinophils % 1.5 %; Lymphocytes # 1.9 10^3/uL (0.8-4.8); Lymphocytes % 31.1 %; Mean Corpuscular HGB Conc 32.4 g/dL (30-55); Mean Corpuscular Hemoglobin 28.2 pg (27-33); Monocytes # 0.6 10^3/uL (0.2-0.9); Monocytes % 9.1 %; Neutrophils # 3.51 10^3/uL (1.8-7.7); Nucleated Red Blood Cells % 0 %; Platelet Count 180 10^3/cmm (157-399); Red Blood Count 5.17 10^6/uL (3.85-5.65); Red Cell Distribution Width 12.3 % (12.1-15.1); White Blood Count 6.15 10^3/uL (3.29-11.43)
[2024-02-11 14:36] LABS: Troponin(5th) Baseline < 6 ng/L (0-10)
[2024-02-11 14:41] LABS: Alanine Aminotransferase 50 U/L (0-33); Albumin Level 4.3 g/dL (3.5-5.2); Alkaline Phosphatase 123 U/L (35-105); Anion Gap 11.3 (5-19); Aspartate Amino Transferase 41 U/L (0-32); Blood Urea Nitrogen 11 mg/dL (6-20); Calcium 9.2 mg/dL (8.5-10.5); Carbon Dioxide 26 mmol/L (22-29); Chloride 104 mmol/L (98-107); Globulin 2.7 g/dL (1.3-4.6); Glucose 97 mg/dL (65-115); Lipase 33 U/L (13-60); Osmolality Calculated 283 mOsm/kg (285-295); Potassium 4.3 mmol/L (3.5-5.1); Sodium 137 mmol/L (136-145); Total Bilirubin 0.7 mg/dL (0.15-1.2)
--- NOTE | 2024-02-11 15:48 | ECG_ITS ---
[facility] Test Date: 2024-02-11 Pat Name: Jazmine Gaspar Department: Room: Gender: Female Informatics Nurse Specialist: : 1970 Requested By: Pa Jarquin Order Number: [id number] Jamel MD: Sung Ware M.D. Measurements Intervals [place] Rate: 50 P: 69 [place]: 165 QRS: 62 QRSD: 89 T: 58 QT: 461 QTc: 424 Interpretive Statements SINUS BRADYCARDIA WITH MARKED SINUS ARRHYTHMIA LOW QRS VOLTAGE IN PRECORDIAL LEADS [QRS DEFLECTION < 1.0 mV IN CHEST LEADS] Compared to ECG 02/11/2024 13:46:52 Myocardial infarct finding no longer present Electronically Signed On 02-12-2024 18:56:37 CDT by Sung Ware M.D. [id number]
--- NOTE | 2024-02-11 15:58 | ED_ITS ---
HPI - Chest Pain 2 General: Chief Complaint: Chest Pain Stated Complaint: chest pain Time Seen by Provider: 02/11/24 15:31 Source: patient Mode of arrival: ambulatory Limitations: no limitations History of Present Illness: 53-year-old female states she started sheikh ving some chest pain today that started 11 she states she had taken 4 aspirin along with the metoprolol and her pain is since lessened states is very minimal currently she denies any dyspnea denies any nausea. She denies any fevers. Associated symptoms: Deny abdominal pain, dyspnea, fever(s), nausea or vomiting Related Data Home Medications Medication Instructions Recorded Confirmed guselkumab [Tremfya] SUBCUT 05/24/23 10/26/23 Previous Rx's Medication Instructions Recorded pen needle, diabetic 33 gauge x #100 ea 03/19/22 calcipotriene 0.005 % topical cream 1 applic topical DAILY L40.0 #60 08/23/22 grams clobetasol 0.05 % scalp solution 1 applic topical DAILY #50 mL 08/23/22 clobetasol 0.05 % topical ointment 1 applic topical BID 2 weeks #45 08/23/22 grams fluocinolone 0.01 % scalp oil and 1 ea topical .2-3 times weekly. 08/23/22 shower cap ([place]-Smoothe/FS Scalp #118.28 mL Oil) hydrocortisone 2.5 % topical 1 applic topical BID L40.0 2 weeks 08/23/22 ointment #28.35 grams ketoconazole 2 % shampoo 1 applic topical ONCE #120 mL 08/23/22 triamcinolone acetonide 0.1 % 1 applic topical BID #80 grams 08/23/22 topical ointment prednisone 2.5 mg tablet 2.5 mg PO DAILY #90 tabs 10/11/23 sulfasalazine 500 mg tablet 0.5 g PO BID #60 tabs 10/11/23 citalopram 20 mg tablet (Celexa) 20 mg PO DAILY #30 tabs 10/26/23 liraglutide 0.6 mg/0.1 mL (18 mg/3 1.8 mg (0.3 mL) SUBCUT DAILY #9 mL 10/26/23 mL) subcutaneous pen injector (Ecomsual 3-Alfie) metoprolol tartrate 25 mg tablet 25 mg PO Q12H #60 tabs 10/26/23 nortriptyline 50 mg capsule 50 mg PO BID #60 caps 10/26/23 pantoprazole 40 mg tablet,delayed 40 mg PO DAILY #30 tabs 10/26/23 release levothyroxine 88 mcg tablet 88 mcg PO QDAY #30 tabs 11/08/23 Allergies Allergy/AdvReac Type Severity Reaction Status Date / Time tofacitinib [From Xeljanz] AdvReac Severe ADR-Abdominal Verified 10/26/23 09:25 Pain Review of Systems 2 Const: Denies: fever(s), chills, body aches or change in appetite Eyes: Denies: eye discomfort ENMT: Denies: throat pain or dental pain Card: Reports: chest pain Resp: Denies: dyspnea GI: Denies: abdominal pain, nausea, vomiting or diarrhea Musc: Denies: neck pain or back pain Skin/Breast: Denies: rash Neuro: Denies: headache(s) PFSH ED 2 PFSH: Medical History SOUTH (generalized anxiety disorder) Immunization counseling Plaque psoriasis Psoriatic arthritis Psoriasis High risk medication use Positive TAMELA (antinuclear antibody) Psoriasiform dermatitis Obesity (BMI 30-39.9) Vitamin D insufficiency History of TIA (transient ischemic attack) Fibromyalgia Adult hypothyroidism SVT (supraventricular tachycardia) Surgical History History of cataract surgery Right 2019 History of endometrial ablation 2008 History of tubal ligation Family History Mother Hypertension Brother Hypertension Family/Other Stroke Other Lung disease Denies family history of Diabetes Chronic kidney disease (CKD) Cancer Social History Smoking and tobacco/nicotine status: never used tobacco/nicotine Second hand smoke exposure: No Alcohol intake: never Substance/Drug Use: unknown Adopted: No Caregiver/support person: No Lives independently: Yes Household members: spouse Housing: House Marital status: Number of children: 4 service: No Current occupational status: unemployed Pets and animals: Yes Do you think of yourself as: Straight/Heterosexual Current gender identity: Female Physical Exam 2 Const: COMMON NORMALS: no acute distress, patient oriented x3 and healthy appearing HENMT: COMMON NORMALS: normocephalic and atraumatic HEAD & SCALP: n ormocephalic and atraumatic Eye: COMMON NORMALS: Equal, round and reactive pupils present and EOMs intact bilaterally PUPIL: Yes Equal, round and reactive pupils present Neck/C-Spine: COMMON NORMALS: full ROM and supple Chest: COMMONS NORMALS: normal inspection of the chest Resp: COMMON NORMALS: normal respiratory effort, No retractions, No use of accessory muscles and clear to auscultation bilaterally AUSCULTATION: clear to auscultation bilaterally Cardio: COMMON NORMALS: regular rhythm and No murmurs present (Cardio) R ATE: bradycardic RHYTHM: regular rhythm Extremity: COMMON NORMALS: normal to inspection and full ROM Neuro: COMMON NORMALS: patient oriented x3, moves all extremities and no focal motor deficits Psych: COMMON NORMALS: mental status grossly normal, Normal thought process present and cooperative THOUGHT PROCESS: Normal thought process present Skin: COMMON NORMALS: no rashes or lesions noted and no wounds GENERAL SKIN EXAM: no rashes or lesions noted Course 2 Vital Signs: Vital signs: Vital Signs Temperature 97.5 F L 02/11/24 13:53 Pulse Rate 48 L 02/11/24 16:06 Respiratory Rate 16 02/11/24 16:06 Blood Pressure 112/78 02/11/24 16:06 Pulse Oximetry 98 02/11/24 16:06 Oxygen Delivery Me thod Room Air 02/11/24 16:06 MDM - Chest Pain Medical Decision Making Patient presents here with chest pain she has been chest pain-free here her EKGs and troponins here are negative she has no signs of ACS or pulmonary embolism she stable for discharge she is follow-up with PCP return if worsening Medical Records I reviewed the patient's medical records. Lab Data I reviewed the patient's lab results. 02/11/24 14:13 02/11/24 14:13 Laboratory Results WBC 6.15 10^3/uL (3.29-11.43) 02/11/24 14:13 RBC 5.17 10^6/uL (3.85-5.65) 02/11/24 14:13 Hgb 14.60 g/dL (11.27-16.99) 02/11/24 14:13 Hct 45.0 % (36-47) 02/11/24 14:13 MCV 87.0 fl (85-98) 02/11/24 14:13 MCH 28.2 pg (27-33) 02/11/24 14:13 MCHC 32.4 g/dL (30-55) 02/11/24 14:13 RDW 12.3 % (12.1-15.1) 02/11/24 14:13 Plt Count 180 10^3/cmm (157-399) 02/11/24 14:13 MPV 11.0 fL (7.4-10.4) H 02/11/24 14:13 Neut % (Auto) 57.0 % 02/11/24 14:13 Lymph % (Auto) 31.1 % 02/11/24 14:13 [place] % (Auto) 9.1 % 02/11/24 14:13 Eos % (Auto) 1.5 % 02/11/24 14:13 Baso % (Auto) 1.0 % 02/11/24 14:13 Neut # (Auto) 3.51 10^3/uL (1.8-7.7) 02/11/24 14:13 Lymph # (Auto) 1.9 10^3/uL (0.8-4.8) 02/11/24 14:13 [place] # (Auto) 0.6 10^3/uL (0.2-0.9) 02/11/24 14:13 Eos # (Auto) 0.1 10^3/uL (0.0-0.8) 02/11/24 14:13 Baso # (Auto) 0.1 10^3/uL (0.0-0.1) 02/11/24 14:13 Nucleated RBC % (auto) 0 % 02/11/24 14:13 Nucleated RBCs # 0.0 /100WBC 02/11/24 14:13 PT 13.50 SECONDS (12.1-14.9) 02/11/24 14:13 INR 1.00 (0.8-1.2) 02/11/24 14:13 Sodium 137 mmol/L (136-145) 02/11/24 14:13 Potassium 4.3 mmol/L (3.5-5.1) 02/11/24 14:13 Chloride 104 mmol/L (98-107) 02/11/24 14:13 Carbon Dioxide 26 mmol/L (22-29) 02/11/24 14:13 Anion Gap 11.3 (5-19) 02/11/24 14:13 BUN 11 mg/dL (6-20) 02/11/24 14:13 Creatinine 0.8 mg/dL (0.5-0.9) 02/11/24 14:13 GFR Calculation 75.0 mL/min (90-130) L 02/11/24 14:13 Glucose 97 mg/dL (65-115) 02/11/24 14:13 Calculated Osmolality 283 mOsm/kg (285-295) L 02/11/24 14:13 Calcium 9.2 mg/dL (8.5-10.5) 02/11/24 14:13 Total Bilirubin 0.7 mg/dL (0.15-1.2) 02/11/24 14:13 AST 41 U/L (0-32) H 02/11/24 14:13 ALT 50 U/L (0-33) H 02/11/24 14:13 Alkaline Phosphatase 123 U/L (35-105) H 02/11/24 14:13 Troponin T Baseline < 6 ng/L (0-10) 02/11/24 14:13 Troponin T 120 Minute 6.00 ng/L (0-10) 02/11/24 16:15 Delta Troponin T 0.30285 ABS# (0-10) 02/11/24 16:15 Total Protein 7.0 g/dL (6.6-8.7) 02/11/24 14:13 Albumin 4.3 g/dL (3.5-5.2) 02/11/24 14:13 Globulin 2.7 g/dL (1.3-4.6) 02/11/24 14:13 Lipase 33 U/L (13-60) 02/11/24 14:13 All radiology interpretation(s) finalized by discharge EKG Data EKG 1: I personally reviewed and interpreted this EKG as follows: EKG interpretation date: 02/11/24 EKG interpretation time: 13:46 Interpretation: sinus carmen hr [address] elevation qrs 83 qtc 416 EKG 2: I personally reviewed and interpreted this EKG as follows: EKG interpretation date: 02/11/24 EKG interpretation time: 16:00 Interpretation: sinus brayd hr [address] or t wave abnormalities qrs 89 qtc 436 Discharge Plan Discharge Patient Disposition: Home Clinical Impression: Chest pain Condition: Stable Prescriptions: No Action (DME) pen needle, diabetic 33 gauge x 5/32 needle See Rx Instructions .ROUTE .MEDSUPPLY Qty: 100 5RF Rx Instructions: 1 time day clobetasol 0.05 % ointment 1 applic topical BID 14 Days Qty: 45 1RF Rx Instructions: Apply to affected area no more than 2 weeks per month, not for face or skin folds triamcinolone acetonide 0.1 % ointment 1 applic topical BID Qty: 80 0RF Rx Instructions: apply to affected area no more than 2 weeks per month. not for face hydrocortisone 2.5 % ointment 1 applic topical BID 14 Days Qty: 28.35 2RF Rx Instructions: Apply to affected area(s) twice daily, no more than two weeks per month, as needed. calcipotriene 0.005 % cream 1 applic topical DAILY Qty: 60 2RF Rx Instructions: rub in gently and completely ketoconazole 2 % shampoo 1 applic topical ONCE Qty: 120 6RF Rx Instructions: Lather into scalp 2-3 times weekly. Allow to sit on scalp 5 minutes before rinsing. guselkumab [Tremfya] SUBCUT sulfasalazine 500 mg tablet 0.5 g PO BID Qty: 60 5RF prednisone 2.5 mg tablet 2.5 mg PO DAILY Qty: 90 1RF citalopram [Celexa] 20 mg tablet 20 mg PO DAILY Qty: 30 5RF Victoza 3-Alfie 0.6 mg/0.1 mL (18 mg/3 mL) pen injector 1.8 mg SUBCUT DAILY Qty: 9 2RF metoprolol tartrate 25 mg tablet 25 mg PO Q12H Qty: 60 5RF nortriptyline 50 mg capsule 50 mg PO BID Qty: 60 2RF pantoprazole 40 mg tablet,delayed release (DR/EC) 40 mg PO DAILY Qty: 30 5RF Rx Instructions: take in AM 30 minutes before meal PO daily; fluocinolone and shower cap [[place]-Smoothe/FS Scalp Oil] 0.01 % oil 1 ea topical .2-3 times weekly. Qty: 118.28 3RF Rx Instructions: Apply to scalp & wear for 8 hr prior to washing with shampoo. May wear overnight and wash out in the AM. clobetasol 0.05 % solution 1 applic topical DAILY Qty: 50 3RF Rx Instructions: M-F off on weekends to areas in scalp levothyroxine 88 mcg tablet 88 mcg PO QDAY Qty: 30 2RF Discharge Orders: Discharge ED (Routine); Ordered 02/11/24 Ordered By: Pa Jarquin Referrals: Alexis Beltrán, CORRESPONDENCE SPECIALIST-C [Primary Care Provider] - 4-7 days Discharge Diet: Advance as tolerated Discharge Activity: Resume usual activity Patient Instructions: Chest Pain (ED) Coding Level of Care Code ED Engine Watchman for Danilo Baltazar
[2024-02-11 16:06] VITALS: BP 112/78; PULSE 48; RESP 16; O2SAT 98
[2024-02-11 16:40] LABS: Troponin 5 2HR Delta 0.00001 ABS# (0-10)
[2024-02-11 16:57] VITALS: BP 111/55; PULSE 51; O2SAT 96
[2024-02-13 15:55] LABS: Thyroid Stimulating Hormone 0.16 uIU/mL (0.27-4.20)
== END 2024-02-11 16:58 | disposition home or self-care (01) ==
PROVIDERS: Emergency Provider Emergency Medicine; PCP Nurse Practitioner
DX: R07.9 Chest pain, unspecified (principal)
CPT/HCPCS: 36415; 71045; 80053; 83690; 84443; 84484; 85025; 85610; 93005; 99285

== ENCOUNTER → 2024-02-21 11:00 | Outpatient (BNVA) | payer MEDICARE, MEDICAID, SELFPAY | PROVIDERS: PCP Nurse Practitioner; Visit Provider Internal Medicine Rheumatology | DX: L40.50 Arthropathic psoriasis, unspecified (principal); L40.0 Psoriasis vulgaris; Z79.899 Other long term (current) drug therapy; Z71.85 Encounter for immunization safety counseling; K76.0 Fatty (change of) liver, not elsewhere classified; Z11.1 Encounter for screening for respiratory tuberculosis; Z11.59 Encounter for screening for other viral diseases | CPT/HCPCS: 99214 ==

== ENCOUNTER 2024-03-07 06:32 | Outpatient (CLI) | payer MEDICARE, MEDICAID, SELFPAY ==
--- NOTE | 2024-03-07 07:00 | USCV_ITS ---
Jazmine Gaspar Age: 53 Gender: F : 1970 Exam Date: 03/07/2024 06:46 Ordering Phys: Alexis Beltrán Technologist: JOSE Exam Location: [facility] Indication: CP BP: / HR: 56 Rhythm: Sinus Technical Quality: Adequate MEASUREMENTS (Male / Female) Normal Values 2D ECHO LV Diastolic Diameter PLAX 3.6 cm 4.2 - 5.9 / 3.9 - 5.3 cm LV Systolic Diameter PLAX 3.2 cm IVS Diastolic Thickness 1.2 cm 0.6 - 1.0 / 0.6 - 0.9 cm IVS Systolic Thickness 1.4 cm LVPW Diastolic Thickness 1.3 cm 0.6 - 1.0 / 0.6 - 0.9 cm LVPW Systolic Thickness 1.4 cm LVOT Diameter 2.0 cm LV Ejection Fraction 2D Teich 26.8 % LV Ejection Fraction MOD 4C 79.0 % LV Ejection Fraction MOD 2C 53.9 % LV Ejection Fraction 2C AL 59.6 % LA Diameter 2.4 cm RA Systolic Volume 4C AL 18.0 ml RA Systolic Volume 4C MOD 17.3 ml LA Sys Volume AL 18.4 cm cubed LA Sys Volume Index AL 9.3 cm cubed/m squared Aorta at Sinotubular Diameter 2.8 cm M-MODE LA Ao Ratio MM 1.0 AV Cusp Separation MM 1.8 cm DOPPLER AV Peak Velocity 126.0 cm/s LVOT Peak Velocity 104.0 cm/s AV Area Cont Eq vti 2.7 cm squared AV Area Cont Eq pk 2.6 cm squared MV Area PHT 2.9 cm squared Mitral E to A Ratio 1.2 TV Peak Velocity 196.0 cm/s TR Peak Velocity 211.0 cm/s TR Peak Gradient 17.8 mmHg TR Mean Velocity 168.0 cm/s TR Mean Gradient 12.8 mmHg TR Velocity Time Integral 73.4 cm TV Peak E Velocity 53.0 cm/s PV Peak Velocity 93.0 cm/s FINDINGS Left Ventricle Normal left ventricular size, systolic function and wall thickness, with no regional wall motion abnormalities. Left ventricular ejection fraction is estimated at 60 %. Grade I/IV diastolic dysfunction (abnormal relaxation filling pattern), normal to mildly elevated filling pressures. Right Ventricle The right ventricle is normal in size and function. Right Atrium The right atrium is normal in size. Left Atrium The left atrium is normal in size. Mitral Valve Thickened mitral valve. No mitral valve stenosis. Mild mitral valve regurgitation. Aortic Valve Structurally normal aortic valve without significant sclerosis or stenosis. There is no aortic regurgitation. Tricuspid Valve Mild tricuspid valve regurgitation. Pulmonic Valve Structurally normal pulmonic valve without significant stenosis. There is no pulmonic regurgitation. Pericardium Normal pericardium without effusion. Aorta Normal ascending aorta dimension. IVC The inferior vena cava appears normal. CONCLUSIONS Normal left ventricular size, systolic function and wall thickness, with no regional wall motion abnormalities. Left ventricular ejection fraction is estimated at 60 %. Grade I/IV diastolic dysfunction (abnormal relaxation filling pattern), normal to mildly elevated filling pressures. Mild tricuspid valve regurgitation. There is no pericardial effusion. Right atrial pressure is around 5 mm of mercury. Mariajose Gould MD (Electronically Signed) Final Date: 07 March 2024 20:06 S
== END 2024-03-07 06:33 | disposition home or self-care (01) ==
PROVIDERS: PCP Nurse Practitioner; Visit Provider Nurse Practitioner
DX: I47.10 Supraventricular tachycardia, unspecified (principal); I07.1 Rheumatic tricuspid insufficiency; R93.1 Abnormal findings on diagnostic imaging of heart and coronary circulation
CPT/HCPCS: 93306

== ENCOUNTER → 2024-04-22 10:21 | Outpatient (BNVA) | payer MEDICARE, MEDICAID, SELFPAY | PROVIDERS: PCP Nurse Practitioner; Visit Provider Nurse Practitioner | DX: I51.89 Other ill-defined heart diseases; E55.9 Vitamin D deficiency, unspecified; E03.9 Hypothyroidism, unspecified; Z79.899 Other long term (current) drug therapy | CPT/HCPCS: 80053; 80061; 82306; 84443; 85025 ==

== ENCOUNTER → 2024-06-06 14:18 | Outpatient (BNVA) | payer MEDICARE, MEDICAID, SELFPAY | PROVIDERS: PCP Nurse Practitioner; Visit Provider Dermatology | DX: L40.0 Psoriasis vulgaris (principal); Z79.899 Other long term (current) drug therapy; D22.4 Melanocytic nevi of scalp and neck; L40.59 Other psoriatic arthropathy; L57.8 Other skin changes due to chronic exposure to nonionizing radiation; L81.4 Other melanin hyperpigmentation | CPT/HCPCS: 99214 ==

== ENCOUNTER → 2024-07-24 09:27 | Outpatient (BNVA) | payer MEDICARE, MEDICAID, SELFPAY | PROVIDERS: PCP Nurse Practitioner; Visit Provider Nurse Practitioner | DX: E03.9 Hypothyroidism, unspecified (principal) | CPT/HCPCS: 80053; 81000; 84443 ==

== ENCOUNTER → 2024-10-16 15:10 | Outpatient (BNVA) | payer MEDICARE, MEDICAID, SELFPAY | PROVIDERS: PCP Nurse Practitioner; Visit Provider Internal Medicine Rheumatology | DX: Z79.899 Other long term (current) drug therapy (principal); M79.10 Myalgia, unspecified site; M25.571 Pain in right ankle and joints of right foot; L40.50 Arthropathic psoriasis, unspecified; L40.0 Psoriasis vulgaris; Z71.85 Encounter for immunization safety counseling; M19.171 Post-traumatic osteoarthritis, right ankle and foot | CPT/HCPCS: 73610; 99214 ==

== ENCOUNTER 2024-10-16 16:15 | Outpatient (CLI) | payer MEDICARE, MEDICAID, SELFPAY ==
[2024-10-21 13:45] LABS: Quantiferon Mitogen 8.82 IU/mL; Quantiferon Nil 0.04 IU/mL; Quantiferon Plus TB1 <0.00 IU/mL; Quantiferon Plus TB2 <0.00 IU/mL; Quantiferon TB Gold NEGATIVE (NEGATIVE)
== END 2024-10-16 16:16 | disposition home or self-care (01) ==
PROVIDERS: PCP Nurse Practitioner; Visit Provider Nurse Practitioner Family
DX: L40.0 Psoriasis vulgaris (principal); Z79.899 Other long term (current) drug therapy; M79.10 Myalgia, unspecified site
CPT/HCPCS: 36415; 80076; 82306; 82565; 85025; 85651; 86140; 86480; 99214

== ENCOUNTER → 2024-10-29 09:00 | Outpatient (BNVA) | payer MEDICARE, MEDICAID, SELFPAY | PROVIDERS: PCP Nurse Practitioner; Visit Provider Nurse Practitioner | DX: I10 Essential (primary) hypertension (principal); E03.9 Hypothyroidism, unspecified; Z12.4 Encounter for screening for malignant neoplasm of cervix | CPT/HCPCS: 80053; 84443; 88175 ==

== ENCOUNTER 2024-11-19 14:53 | Outpatient (CLI) | payer MEDICARE, MEDICAID, SELFPAY ==
--- NOTE | 2024-11-19 13:40 | MM_ITS ---
WS: [id number] BILATERAL 3D TOMOSYNTHESIS DIGITAL SCREENING MAMMOGRAPHY WITH CAD CLINICAL INFORMATION: Z12.31 - Encounter for screening mammogram for malignant ... HISTORY: Screening mammogram. No current complaints. COMPARISON: 2019 TECHNIQUE: Bilateral CC and MLO views. FINDINGS: Scattered fibroglandular densities bilaterally. No suspicious focal mass, asymmetry, calcifications, or architectural distortion. No evidence of malignancy. Lucent centered calcification RIGHT breast MM/MM scr BI tomosynthesis [id number] IMPRESSION: DENSITY: There are scattered areas of fibroglandular density. BI-RADS: 2 - Benign. FOLLOW UP: 1 Year Follow-up Recommend return to annual screening mammography.
== END 2024-11-19 14:54 | disposition home or self-care (01) ==
LOC: MOBLMAM 14:53
PROVIDERS: PCP Nurse Practitioner; Visit Provider Nurse Practitioner
DX: Z12.31 Encounter for screening mammogram for malignant neoplasm of breast (principal); R92.323 Mammographic fibroglandular density, bilateral breasts; R92.1 Mammographic calcification found on diagnostic imaging of breast
CPT/HCPCS: 77063; 77067

== ENCOUNTER 2024-12-24 09:01 | Outpatient (CLI) | payer MEDICARE, MEDICAID, SELFPAY ==
--- NOTE | 2024-12-24 09:06 | XRR_ITS ---
PROCEDURE INFORMATION: Exam: XR Right Ankle Exam date and time: 12/24/2024 9:14 AM Age: 54 years old Clinical indication: Injury or trauma; Sprain or strain; Injury date: 10 days ago; Injury details: X10 days twisted ankle, swollen and pain on lateral side, HX of FX in right ankle; Additional info: M25.571 - pain in right ankle and joints of right foot TECHNIQUE: Imaging protocol: Radiologic exam of the right ankle. Views: 3 or more views. COMPARISON: CR XR ankle RT min 3V* [id number] 10/16/2024 3:17 PM FINDINGS: Bones/joints: Calcaneal spurs. Normal alignment. No acute fracture. Probable joint effusion. Soft tissues: Lateral soft tissue swelling. XR/XR ankle RT min 3V* [id number] IMPRESSION: No acute osseous abnormality.
== END 2024-12-24 09:02 | disposition home or self-care (01) ==
LOC: RAD 09:02
PROVIDERS: PCP Nurse Practitioner; Visit Provider Clinical Nurse Specialist Adult Health
DX: M25.571 Pain in right ankle and joints of right foot (principal)
CPT/HCPCS: 73610

== ENCOUNTER → 2025-03-12 14:45 | Outpatient (BNVA) | payer MEDICARE, MEDICAID, SELFPAY | PROVIDERS: PCP Nurse Practitioner; Visit Provider Dermatology | DX: L40.0 Psoriasis vulgaris (principal); Z79.899 Other long term (current) drug therapy; L40.59 Other psoriatic arthropathy; D22.39 Melanocytic nevi of other parts of face; L82.1 Other seborrheic keratosis | CPT/HCPCS: 99214 ==

== ENCOUNTER → 2025-04-01 09:23 | Outpatient (BNVA) | payer MEDICARE, MEDICAID, SELFPAY | PROVIDERS: PCP Nurse Practitioner; Visit Provider Internal Medicine Rheumatology | DX: L40.50 Arthropathic psoriasis, unspecified (principal); L40.0 Psoriasis vulgaris; Z79.899 Other long term (current) drug therapy; Z71.85 Encounter for immunization safety counseling; Z87.19 Personal history of other diseases of the digestive system | CPT/HCPCS: 36415; 80076; 82565; 85025; 85651; 86140; 99214 ==

== ENCOUNTER → 2025-04-16 07:58 | Outpatient (BNVA) | payer MEDICARE, MEDICAID, SELFPAY | PROVIDERS: PCP Nurse Practitioner; Visit Provider Nurse Practitioner | DX: E03.9 Hypothyroidism, unspecified (principal); I47.10 Supraventricular tachycardia, unspecified | CPT/HCPCS: 80053; 80061; 84443 ==

== ENCOUNTER 2025-04-22 06:11 | Outpatient (CLI) | payer MEDICARE, MEDICAID, SELFPAY ==
--- NOTE | 2025-04-22 06:30 | US_ITS ---
WS: [id number] RIGHT UPPER QUADRANT ULTRASOUND HISTORY: R79.89 - Other specified abnormal findings of blood chemi... COMPARISON: 01/19/2023 Liver: 17.8 cm in length. Mildly enlarged liver. Mild coarse and increased echotexture throughout the liver is slightly progressed since 2022. No mass identified. No intrahepatic duct dilatation. Focal fatty sparing adjacent to the gallbladder. Portal Vein: Normal hepatopetal flow with monophasic waveform. Gallbladder: Normally distended gallbladder with no stones or wall thickening. CBD: 0.4 cm Pancreas: Normal size and echogenicity. Right kidney: 10.1 cm in length. Normal size and echogenicity. No hydronephrosis or mass. Aorta and IVC: Unremarkable abdominal aorta and IVC. No ascites. US/US liver [id number] IMPRESSION: 1. Normal gallbladder. 2. Mild hepatomegaly with changes of hepatic steatosis. Mild progression since 2022.
== END 2025-04-22 06:12 | disposition home or self-care (01) ==
LOC: RAD 06:12
PROVIDERS: PCP Nurse Practitioner; Visit Provider Nurse Practitioner
DX: R79.89 Other specified abnormal findings of blood chemistry (principal); K76.0 Fatty (change of) liver, not elsewhere classified
CPT/HCPCS: 76705